=== PATIENT | male | born 1985 | race Caucasian/White ===

== ENCOUNTER 2016-12-11 08:19 | Emergency (ER) | payer OTHER ==
[~2016-12-11] VITALS: Ht 193 cm; Wt 102.1 kg
[2016-12-11] MEDS ORDERED: NO HOME MEDICATION XX (08:30)
[2016-12-11 08:33] LABS: URINE BILIRUBIN NEGATIVE (NEG); URINE BLOOD SMALL (NEG); URINE GLUCOSE (UA) NEGATIVE (NEG); URINE KETONE NEGATIVE (NEG); URINE LEUKOCYTE ESTERASE NEGATIVE (NEG); URINE NITRITE NEGATIVE (NEG); URINE PROTEIN SMALL (NEG); URINE SPECIFIC GRAVITY 1.025 (1.003-1.030)
[2016-12-11 08:34] LABS: URINE APPEARANCE CLEAR; URINE COLOR YELLOW
[2016-12-11 08:44] LABS: URINE WBC RARE /[HPF] (0-5)
[2016-12-11] MEDS ORDERED: ZOFRAN ODT4 MG PO (09:09)
[2016-12-11] MEDS ORDERED: FLOMAX0.4 M1 PO (09:09)
[2016-12-11] MEDS ORDERED: PERCOCET 5-3251 EACH PO (09:09)
== END 2016-12-11 09:35 ==
LOC: EDMED 08:19
PROVIDERS: Emergency Medicine
PROC: BW21ZZZ Computerized Tomography (CT Scan) of Abdomen and Pelvis (ICD-10-PCS; principal; 2016-12-11)
DX: N13.2 Hydronephrosis with renal and ureteral calculous obstruction (principal)
CPT/HCPCS: J1170; J1885; J2405; J7030